=== PATIENT | male | born 1970 | race Caucasian/White ===

== ENCOUNTER 2024-02-25 10:14 | Emergency (ER) | payer OTHER ==
[2024-02-25 10:23] VITALS: O2SAT 100
[2024-02-25] MEDS: PROPARACAINE 0.5% OPHTH DROPS 15 ML LEFTEYE STA (10:47)
[2024-02-25 10:53] VITALS: BP 107/69
--- NOTE | 2024-02-25 11:31 | ED Physician Documentation ---
History of Present Illness - Stated complaint Stated Complaint: L EYE PAIN - Chief complaint Chief Complaint: Heent - History obtained from History obtained from: Patient - History of Present Illness Timing: Prior to arrival - Treatment prior to arrival Treatment prior to arrival: Patient is a 53-year-old male presenting to the emergency department with sudden onset of left eye pain. He notes he was working on a Zoom call and suddenly felt left eye pain. He notes he felt fine when he woke up this morning he wears reading glasses at baseline but does not wear contacts. He notes possible feelings of foreign body no cremation no foreign flashing lights or floaters in his vision. He is unsure if he was rubbing or itching his eye prior to this denies any significant discharge or swelling to his eye. He denies any recent trauma to his eye. He denies any loss of vision. PD PAST MEDICAL HISTORY - Past Medical History Past Medical History: No - Past Surgical History Past Surgical History: No - Allergies Allergies/Adverse Reactions: Allergies Allergy/AdvReac Type Severity Reaction Status Date / Time No Known Drug Allergies Allergy Verified 02/25/24 10:23 - Social History Does the pt smoke?: No Smoking Status: Never smoker Does the pt drink ETOH?: Yes Does the pt have substance abuse?: No - Immunizations Immunizations are current?: Yes PD ED PE NORMAL - Vitals Vital signs reviewed: Yes - General General: Alert and oriented X 3 - HEENT HEENT: PERRL, Other (Extraocular muscles intact no significant conjunctival erythema fluorescein stain performed at bedside showing no foreign bodies but small fluorescein uptake to medial portion of left cornea. No significant discharge. No lacrimal swelling or periorbital swelling. Pupils are equal round reactive to) - Cardiac Cardiac: RRR, No murmur, No gallop - Respiratory Respiratory: No respiratory distress, Clear bilaterally - Abdomen Abdomen: Normal bowel sounds, Soft, Non tender - Derm Derm: Normal color, Other (No periorbital swelling or erythema appreciated.) Results - Vitals Vitals: Vital Signs - 24 hr 02/25/24 10:19 Temperature 36.2 C L Heart Rate 86 Respiratory 20 Rate Blood Pressure 107/69 O2 Saturation 100 PD Medical Decision Making - ED course Complexity details: reviewed old records, d/w patient ED course: Patient is a 53-year-old male presenting to the emergency department with sudden onset of left eye pain that started shortly prior to arrival patient was able to drive himself here and has 20/20 visual acuity on arrival. He notes persistent pain without flashing lights or floaters in his vision to his left eye. He denies any swelling no recent trauma. Unsure if he is itching his eye prior to this he wears glasses at baseline but no contacts. Fluorescein stain and proparacaine performed at bedside Villarreal lamp shows small uptake to left eye on the medial portion of the cornea at approximately 9 o'clock position lateral to iris. No signs of foreign body everted upper eyelid no signs of foreign body noted. Patient feels significantly better after proparacaine is applied. Erythromycin ointment was ordered and placed here in patient's eye. Given 20/20 vision and he feels significantly better patient's symptoms most likely secondary to corneal abrasion erythromycin will be prescribed for him to use 4 times at home he will follow-up with his primary care doctor instructed patient to watch for any loss of vision or worsening pain increased photophobia flashing lights or floaters in his vision. Patient understands and is agreeable with this plan. Departure - Departure Disposition: 01 Home, Self Care Clinical Impression: Pain in eye, Corneal abrasion, left Condition: Good Record reviewed to determine appropriate education?: Yes Assessment: Watch for any worsening pain any loss of vision any floaters in your vision swelling to the eye or any other new or worsening symptoms. Use erythromycin 4 times a day as prescribed above. Please return with any worsening symptoms.
[2024-02-25] MEDS: ERYTHROMYCIN OPHTH OINT 1 GM TUBE LEFTEYE STA (11:41)
== END 2024-02-25 12:38 | disposition home or self-care (01) ==
LOC: EDBD → ED 10:14
DX: S05.02XA Injury of conjunctiva and corneal abrasion without foreign body, left eye, initial encounter (principal); X58.XXXA Exposure to other specified factors, initial encounter
CPT/HCPCS: 99283; 99284; J3490